=== PATIENT | female | born 1995 | race Caucasian/White ===

== ENCOUNTER → 2016-11-28 | Outpatient (CLI) | payer BC ==
[2016-11-28 15:51] LABS: CHCM 32.8; HCT 35.1 % (34.0-46.0); HDW 2.42; HGB 11.6 gm/dL (11.4-16.0); MCH 28.1 pg (25.0-35.0); MCHC 32.9 g/dL (31.0-37.0); MCV 85.5 fL (80.0-100.0); Mean Platelet Volume 7.5; RBC 4.11 m/uL (3.80-5.40); RDW 14.2 % (11.5-15.5); WBC 11.4 k/uL (3.8-10.6)
[2016-11-28 15:58] LABS: Glucose 91 mg/dL (74-99); Non-African American GFR(MDRD) >60 (>60 ml/min/1.73 sqM)
[2016-11-28 17:01] LABS: Hepatitis B Surface Ag Index 0.04
[2016-11-30 12:04] LABS: HIV-1/HIV-2 Ab Screen NONREAC (NON REAC)
== END | disposition home or self-care (01) ==
LOC: LABWHC1 15:24
PROVIDERS: ATTEND Obstetrics & Gynecology
DX: Z34.00 Encounter for supervision of normal first pregnancy, unspecified trimester (principal)
CPT/HCPCS: 36415; 82565; 82947; 85027; 86762; 86780; 86850; 86900; 86901; 87340; 87389

== ENCOUNTER → 2017-02-09 | Outpatient (CLI) | payer OTHER ==
[2017-02-09 11:40] LABS: CH 28.8; CHCM 33.1; HDW 2.92; MCHC 33.1 g/dL (31.0-37.0); MCV 87.5 fL (80.0-100.0); Mean Platelet Volume 7.6; RBC 3.43 m/uL (3.80-5.40); RDW 13.9 % (11.5-15.5); WBC 11.6 k/uL (3.8-10.6)
== END | disposition home or self-care (01) ==
LOC: LABWHC1 10:06
PROVIDERS: ATTEND Obstetrics & Gynecology
DX: Z34.02 Encounter for supervision of normal first pregnancy, second trimester (principal); Z3A.00 Weeks of gestation of pregnancy not specified
CPT/HCPCS: 36415; 82950; 85027

== ENCOUNTER → 2017-02-13 | Outpatient (CLI) | payer BC, OTHER ==
[2017-02-13 12:15] LABS: Glucose 3 Hour, Gest 130 mg/dL
== END | disposition home or self-care (01) ==
LOC: LABWHC1 07:46
PROVIDERS: ATTEND Obstetrics & Gynecology
DX: O24.419 Gestational diabetes mellitus in pregnancy, unspecified control (principal); Z3A.00 Weeks of gestation of pregnancy not specified
CPT/HCPCS: 36415; 82951; 82952

== ENCOUNTER 2017-03-31 15:28 | Emergency (ER) | payer BC, OTHER ==
[2017-03-31 15:34] VITALS: BP 136/80; PULSE 78; RESP 20; TEMP 97.5
--- NOTE | 2017-03-31 16:35 | ED ---
General Adult HPI - General Chief complaint: Neck Pain/Injury Stated complaint: Neck Pain Time Seen by Provider: 03/31/17 15:49 Source: patient Mode of arrival: ambulatory Limitations: no limitations - History of Present Illness Initial comments: 21-year-old female patient presented to emergency department today for evaluation of painful bumps to her left posterior scalp near the hairline. She states that she noticed these bumps on Thursday, states that they never went away, and that they cause pain to the left side of her head especially with palpation. Patient denies any other symptoms. Patient is 31 weeks . Patient denies any recent fever, chills, cough, congestion, nasal congestion or drainage, sore throat, shortness breath, chest pain, abdominal pain, nausea, vomiting, diarrhea, constipation, back pain, numbness, tingling, headache, visual changes, hematuria, dysuria, urinary frequency, urinary urgency, or any other complaints. - Related Data Previous Rx's Medication Instructions Recorded Amoxicillin 500 mg PO TID #30 capsule 03/31/17 Allergies Allergy/AdvReac Type Severity Reaction Status Date / Time No Known Allergies Allergy Verified 03/31/17 15:34 Review of Systems ROS Statement: Those systems with pertinent positive or pertinent negative responses have been documented in the HPI. ROS Other: All systems not noted in ROS Statement are negative. Past Medical History Past Medical History: No Reported History History of Any Multi-Drug Resistant Organisms: None Reported Past Surgical History: No Surgical Hx Reported Past Psychological History: No Psychological Hx Reported Smoking Status: Current every day smoker Past Alcohol Use History: None Reported Past Drug Use History: None Reported General Exam Limitations: no limitations General appearance: alert, in no apparent distress Head exam: Present: atraumatic, normocephalic, normal inspection, other (3 suboccipital lymph nodes palpated to the left side.) Eye exam: Present: normal appearance, PERRL, EOMI. Absent: scleral icterus, conjunctival injection, periorbital swelling ENT exam: Present: normal exam, normal oropharynx, mucous membranes moist, TM's normal bilaterally Neck exam: Present: normal inspection, lymphadenopathy (Suboccipital lymph nodes appreciated as noted in the head exam.). Absent: tenderness, meningismus Respiratory exam: Present: normal lung sounds bilaterally. Absent: respiratory distress, wheezes, rales, rhonchi, stridor Cardiovascular Exam: Present: regular rate, normal rhythm, normal heart sounds. Absent: systolic murmur, diastolic murmur, rubs, gallop, clicks Extremities exam: Present: normal inspection, full ROM, normal capillary refill. Absent: tenderness, pedal edema, joint swelling, calf tenderness Back exam: Present: normal inspection Neurological exam: Present: alert, oriented X3, CN II-XII intact Psychiatric exam: Present: normal affect, normal mood Skin exam: Present: warm, dry, intact, normal color. Absent: rash Course Vital Signs 03/31/17 15:30 Temperature 97.5 F L Pulse Rate 78 Respiratory 20 Rate Blood Pressure 136/80 O2 Sat by Pulse 99 Oximetry Medical Decision Making - Medical Decision Making 21-year-old female patient presented for evaluation of lumps to the left posterior scalp near the hairline, and left-sided head pain. Physical exam did reveal 3 tender mobile lymph nodes attending suboccipital region of the left side. No other lymph nodes appreciated. Patient physical exam is unremarkable otherwise. The patient will be discharged with a prescription for amoxicillin. Did discuss the possibility of a developing shingles infection as patient did have chickenpox as a child. She is instructed to monitor the area for any eruption of rash or blistering. Will not treat patient for shingles as she is 31 weeks . She is instructed to follow-up with her primary care physician for recheck in 1-2 days. She is instructed to return here immediately for any new, worsening, or concerning symptoms. Disposition Clinical Impression: Lymphadenopathy of head and neck Disposition: HOME SELF-CARE Condition: Good Instructions: Lymphadenopathy (ED) Additional Instructions: Take antibiotic as directed. Increase fluids. Follow up with the primary care physician or return here for any new, worsening, or concerning symptoms. Prescriptions: Amoxicillin 500 mg PO TID #30 capsule Referrals: None,Stated [Primary Care Provider] - 1-2 days Time of Disposition: 16:35
== END 2017-03-31 16:39 | disposition home or self-care (01) ==
LOC: EC 15:28
DX: O26.893 Other specified pregnancy related conditions, third trimester (principal); R59.0 Localized enlarged lymph nodes; O99.333 Smoking (tobacco) complicating pregnancy, third trimester; F17.200 Nicotine dependence, unspecified, uncomplicated; Z3A.31 31 weeks gestation of pregnancy
CPT/HCPCS: 99283